=== PATIENT | male | born 1945 | race Caucasian/White ===

== ENCOUNTER → 2021-01-27 00:44 | Outpatient (CLI) | payer MEDICARE, SELFPAY ==
--- NOTE | 2021-01-27 11:00 | DI.NM_ITS ---
APPROVED REPORT Exam: Pharmacologic Patient Location: Out-Patient Room/Bed: Stress Nurse: Maria C Dugan RN Ordering Provider:DAMEON BARRETO MD Contact Number: [phone] BMI: 29.34 Baseline Rhythm: Sinus bradycardia w/ LBBB, 1 DHB Indications: Bundle Branch Block, CAD Medical History Medical History: Hypertension, hyperlipidemia, hx tobacco use, depression, impaired glucose intoleran ce Cardiac Medications: Amlodipine, benazepril, simvastatin, aspirin Allergies: NKA Cardiac Risk Factors: Hypertension, hyperlipidemia, smoker (former), family hx Previous Cardiac Procedures: None Pretest Chest Pain Characteristics: None Exercise History: Sedentary Physical Disabilities: None Lung Sounds: Clear to auscultation Heart Sounds: Regular Stress Test Details Test: Pharmacologic stress was paired with low level exercise. Reason for pharmacologic stress test: LBBB. Nuclear Acquisition: Rest Tc-99m/Stress Tc-99m 1 day Rest Isotope: Tc-99m Sestamibi. Dose: 11.1 Date: 01/27/2021 Injection Time: 1100 Stress Isotope: Tc-99m Sestamibi. Dose: 36.1 Date: 01/27/2021 Injection Time: 1315 HR Resting HR Supine: 57 bpm Max Heart Rate (APMHR): 145.288938 bpm Resting HR Standin bpm Target HR (85% APMHR): 123.542590 bpm Max HR Achieved: 167 bpm % of APMHR: 115.17 Recovery HR: 66 bpm HR response to stress: Normal HR response to stress BP Resting BP Supine: 150/80 mmHg Resting BP Standin/68 mmHg Max BP: 188/60 mmHg Recovery BP: 168/62 mmHg BP response to stress: Normal blood pressure response to stress. ECG Resting ECG: Sinus bradycardia, LBBB, 1 DHB Ectopy: None Comment: Rare PVC Stress ECG: Sinus Rhythm, LBBB, 1DHB ST Change: Nondiagnostic LBBB Arrhythmia: Rare PVC Recovery ECG: Sinus Rhythm, LBBB, [address] Change: Nondiagnostic LBBB Recovery Arrhythmia: Rare PVC Clinical Stress Symptoms: Dyspnea, General Fatigue Exercise duration: 4 min18 sec Exercise capacity: 1.77 METs Henry Treadmill Score: 4.0 Rate Pressure Product: [id number] Stress ECG Conclusion 1. The resting electrocardiogram showed a left bundle branch block 2. Patient underwent low-level coupled with pharmacologic stress 3. Electrocardiographically the test was nondiagnostic due to resting EKG abnormalities (LBBB) Henry Treadmill Score is 4.0 which is Moderate risk. Stress Test Summary STAGE HR BP Symptoms NOTES Supine 57 150/80 SpO2 97% 1 min post Lexiscan injection 118 170/92 SpO2 98% Severe dyspnea 3 min post Lexiscan injection 77 188/60 SpO2 98% Symptoms resolved 6 min post Lexiscan injection 66 168/62 SpO2 98% Pt exercised at 1.0mph and grade 0% for 2 minutes prior to lexiscan injection. After injection pt rep orted severe dyspnea, SpO2 98%. Treadmill decreased to 0.6 mph and pt maintained exercise for 2 more minutes, tolerated well. Symptoms resolved at cessation of exercise. MPI Conclusion No evidence of myocardial ischemia or prior infarction EF is 54% Radiologist Interpretation Radiologist agrees with Messenger Copy's Interpretation. Radiologist Interpretation by: Rivas Milton MD Interpretation Date/Time: 01/28/2021 15:33:48
[2021-01-27] MEDS: Regadenoson 0.4 MG/5 ML SYR IVP (14:00)
== END ==
PROVIDERS: Visit Provider Internal Medicine Interventional Cardiology
DX: I25.10 Atherosclerotic heart disease of native coronary artery without angina pectoris (principal); R00.1 Bradycardia, unspecified; I44.7 Left bundle-branch block, unspecified; I10 Essential (primary) hypertension; E78.5 Hyperlipidemia, unspecified; Z82.49 Family history of ischemic heart disease and other diseases of the circulatory system; Z87.891 Personal history of nicotine dependence; R94.39 Abnormal result of other cardiovascular function study
CPT/HCPCS: 78452; 93016; 93018; 93017; J2785